=== PATIENT | male | born 1945 | race Two or more races ===

== ENCOUNTER 2017-04-23 16:18 | Emergency (ER) | payer OTHER, MEDICAID ==
[2017-04-23 18:09] LABS: BASOPHIL % 1.2 % (0-2); PLATELET COUNT 297 x10^3mcL (130-400); RED CELL DISTRIBUTION WIDTH 14.3 % (11.5-14.5)
[2017-04-23 18:30] LABS: ALKALINE PHOSPHATASE 118 U/L (46-116); ALT/SGPT 17 U/L (16-63); AST/SGOT 10 U/L (15-37); BILIRUBIN TOTAL 0.3 mg/dL (0.20-1.00); CALCIUM 9.1 mg/dL (8.5-10.1); CARBON DIOXIDE 24.2 mmol/L (21-32); CHLORIDE SERUM 98 mmol/L (98-107); GLUCOSE SERUM 104 mg/dL (74-106); POTASSIUM SERUM 3.7 mmol/L (3.5-5.1); SODIUM SERUM 137 mmol/L (136-145)
[2017-04-23 18:31] LABS: ALBUMIN 3.3 g/dL (3.4-5.0)
[2017-04-23 18:32] LABS: CREATININE SERUM 6.9 mg/dL (0.7-1.3)
[2017-04-23 22:18] VITALS: BP 130/82
== END 2017-04-23 22:18 | disposition home or self-care (01) ==
LOC: ED 16:18
PROVIDERS: Emergency Medicine
DX: K40.90 Unilateral inguinal hernia, without obstruction or gangrene, not specified as recurrent (principal); K59.00 Constipation, unspecified; N18.6 End stage renal disease; Z87.438 Personal history of other diseases of male genital organs
CPT/HCPCS: 36415; Q9966

== ENCOUNTER 2019-09-30 14:24 | Emergency (ER) | payer OTHER, MEDICAID ==
[~2019-09-30] VITALS: Ht 167.6 cm; Wt 104.3 kg
[2019-09-30 14:35] VITALS: Ht 167.6 cm; Wt 104.3 kg
[2019-09-30 14:54] LABS: BASOPHIL % 0.4 % (0-2); PLATELET COUNT 332 x10^3mcL (130-400)
[2019-09-30 15:06] LABS: RED CELL DISTRIBUTION WIDTH 16.2 % (11.5-14.5)
[2019-09-30 15:16] LABS: ALKALINE PHOSPHATASE 99 U/L (46-116); ALT/SGPT 22 U/L (16-63); AST/SGOT 8 U/L (15-37); BILIRUBIN TOTAL 0.4 mg/dL (0.20-1.00); CALCIUM 8.2 mg/dL (8.5-10.1); CHLORIDE SERUM 98 mmol/L (98-107); CHOLESTEROL 168 mg/dL (<200); GLUCOSE SERUM 90 mg/dL (74-106); HDL CHOLESTEROL 45 mg/dL (40-60); PHOSPHOROUS 2.9 mg/dL (2.5-4.9); POTASSIUM SERUM 3.4 mmol/L (3.5-5.1); SODIUM SERUM 141 mmol/L (136-145); TOTAL PROTEIN, SERUM 7.7 g/dL (6.4-8.2); URIC ACID 2.3 mg/dL (3.5-7.2)
[2019-09-30 15:18] LABS: CREATININE SERUM 4.9 mg/dL (0.7-1.3)
[2019-09-30 16:19] VITALS: BP 102/70
== END 2019-09-30 16:19 | disposition home or self-care (01) ==
LOC: ED 14:24
PROVIDERS: Emergency Medicine
DX: R07.89 Other chest pain (principal); R05 Cough
CPT/HCPCS: J1885; Q0092